=== PATIENT | male | born 1955 | race Caucasian/White ===

== ENCOUNTER 2017-01-03 22:08 | Observation (INO) | payer OTHER ==
[2017-01-03 22:15] VITALS: BMI 22.1
[2017-01-03] MEDS ORDERED: SOLU-Medrol 125 MG VIAL IVP ONE (22:23)
--- NOTE | 2017-01-03 22:28 | DR.GENAD ---
HPI - Complaint/Symptoms Chief Complaint Doctors Comments: Patient complains of not being able to catch his breath for the past 2-3 days getting worst. states he ran out his albuterol about two weeks ago and has been taking OTC medicines. states he does not have a local doctor. He is not on any medicines. states he smokes one pack cigarettes daily. He denies chest pain but has been having SOB and wheezing and decreased energy. He denies swelling of his hands or legs. Chief Complaint:: pt stated that he has become increasingly sob over the last two days Self Treatment fo Chief Complaint: musinex with no relief - Nurses notes reviewed Nurses Notes Review: Yes - Source History Provided: Patient - Mode of Arrival Mode of Arrival: Wheelchair - Timing Onset of Chief Complaint: 01/02/17 Came on: Gradually - Duration Duration: Constant How lon Duration: Days - Location Location: SOB - Severity Severity: Moderate, Severe - Modifying Factors Worsens:: movement Improves:: nothing PMH - PMH Past Medical History: No Past Surgical History: No - Family History History of Family Medical Conditions: No - infectious screening Have you traveled outside the country in the last 6 months?: No ROS - Review of Systems Constitutional: No Symptoms Reported, Weakness. negative: See HPI, Chills, Diaphoresis, Fever, Malaise, Irritable, Fatigue, Loss of Appetite, Other Eyes: No Symptoms Reported. negative: See HPI, Eye Pain, Blurred Vision, Tearing, Discharge, Photophobia, Diplopia, Other ENTM: No Symptoms Reported Respiratoy: No Symptoms Reported, Non-Productive Cough, Short of Breath, Wheezing. negative: See HPI, Productive Cough, Moist Cough, Dry Cough, Hacking Cough, Barking Cough, Brassy Cough, Orthopnea, Stridor, Hemoptysis, Other Cardiovascular: No Symptoms Reported. negative: See HPI, Chest Pain, Edema, Palpitations, Syncope, Cyanosis, Skin Mottling, Other Gastrointestinal/Abdominal: No Symptoms Reported. negative: See HPI, Abdominal Pain, Constipation, Diarrhea, Nausea, Vomiting, Food Intolerance, Other Genitourinary: No Symptoms Reported. negative: See HPI, Discharge, Dysuria, Frequency, Hematuria, Pain, Bleeding, Other Neurological: No Symptoms Reported Musculoskeletal: No Symptoms Reported Integumentary: No Symptoms Reported Hematologic/Lymphatic: No Symptoms Reported. negative: See HPI, Anemia, Blood Clots, Easy Bleeding, Easy Bruising, Swollen Glands, Lymphadenopathy, Other Endocrine: No Symptoms Reported Psychiatric: No Symptoms Reported. negative: See HPI, Anxiety, Depression, Hallucinations, Excessive crying, Suicidal, Other PE - Vital Signs Vitals: Temperature 97.4 F Pulse Rate 95 Respiratory Rate 25 Blood Pressure 144/88 O2 Sat by Pulse Oximetry 85 - General Limitations: No Limitations General Appearance: Alert, In Distress (moderate to severe) - Head Head Exam: Normal Inspection, Atraumatic, Normocephalic - Eyes Eye exam: Normal Appearance, PERRL, EOMI. negative: Scleral Icterus, Conjunctival Injection, Nystagmus, Miosis, Mydrasis, Periorbital Swelling, Periorbital Tenderness, Other - ENT ENT Exam: Normal Exam, Normal Oropharynx, Normal External Ear Exam, Mucous Membranes Moist, TM's Normal Bilaterally External Ear Exam: Normal External Inspection TM/Canal Exam: Bilateral Normal Nose Exam: Normal Nose Exam Mouth Exam: Normal Inspection Throat Exam: Normal Inspection - Neck Neck Exam: Normal Inspection, Full ROM, Trachea Midline. negative: Tenderness, Meningismus, Lymphadenopathy, Thyromegaly, Other - Chest Chest Inspection: Normal Inspection, Symmetric Chest Wall Rise - Respiratory Respiratory Exam: Normal Lung Sounds Bilat, Prolonged Expiratory Phase Respiratory Exam: Bilateral Wheezing, Bilateral Decreased Breath Sounds - Cardiovascular Cardiovascular Exam: Regular Rate, Normal Rhythm, Normal Heart Sounds - Abdominal Exam Abdominal Exam: Normal Inspection, Normal Bowel Sounds, Soft. negative: Distention, Tenderness, Guarding, Rebound, Rigidity, Dimnished Bowel Sounds, Hyperactive Bowel Sounds, Hypoactive Bowel Sounds, Organomegaly, Trauma, Incision, Ascites, Mass, Bruit, Pulsatile Mass, Hernia, Other Abdominal Tenderness: negative: RUQ, RLQ, LUQ, LLQ, Epigastrium, Suprapubic, Diffuse, Mild, Moderate, Severe, Other - Extremities Extremities Exam: Normal Inspection, Full ROM, Normal Capillary Refill. negative: Tenderness, Edema, Joint Swelling, Calf Tenderness, Other - Back Back Exam: Normal Inspection, Full ROM. negative: Tenderness, (R) CVA Tenderness, (L) CVA Tenderness, Muscle Spasm, Paraspinal Tenderness, Vertebral Tenderness, Rashes, (R) Sciatic Notch Tenderness, (L) Sciatic Notch Tendern, (R ) Straight Leg Raise, (L) Straight Leg Raise, Other - Neurologic Neurological Exam: Alert, Oriented X3, CN II-XII Intact, Reflexes Normal. negative: Normal Gait (gait not tested) - Psychiatric Psychiatric Exam: Normal Affect, Normal Mood - Skin Skin Exam: Warm, Dry, Intact, Normal Color Course - Reevaluation 1st: Improved - Consultation Called: 23:37 Call Returned: 23:37 (Dr. Mendoza to admit) - Education/Counseling Education/Counseling: Patient, Family Educated On: Treatment, Diagnosis, Prognosis, Needs for Follow Up ROR - Labs Reviewed Laboratory Results Reviewed?: Yes (all labs and x-ray results reviewed and discussed with patient and spouse) Result Diagrams: 01/03/17 22:30 01/03/17 22:30 Laboratory: WBC 9.2 X10^3/uL (3.6-10.0) 01/03/17 22:30 RBC 4.77 X10^6/uL (4.7-6.0) 01/03/17 22:30 Hgb 14.8 g/dL (13.5-18.0) 01/03/17 22:30 Hct 43.4 % (42.0-54.0) 01/03/17 22:30 MCV 90.9 fL (80.0-100.0) 01/03/17 22:30 MCH 31.0 pg (27.0-34.0) 01/03/17 22:30 MCHC 34.1 g/dL (33.0-35.0) 01/03/17 22:30 RDW 13.6 % (11.6-16.5) 01/03/17 22:30 Plt Count 167 X10^3/uL (150.0-450.0) 01/03/17 22:30 MPV 8.1 fL (7.4-11.0) 01/03/17 22:30 Neut % 44.5 % (42.0-75.0) 01/03/17 22:30 Lymph % 42.3 % (21.0-51.0) 01/03/17 22:30 [place] % 7.6 % (0.0-13.0) 01/03/17 22:30 Eos % 4.0 % (0.9-2.9) H 01/03/17 22:30 Baso % 1.6 % (0.2-1.0) H 01/03/17 22:30 Neut # 4.1 x10^3/uL (2.2-4.8) 01/03/17 22:30 Lymph # 3.9 X10^3/uL (1.3-2.9) H 01/03/17 22:30 [place] # 0.7 x10^3/uL (0.3-0.8) 01/03/17 22:30 Eos # 0.4 x10^3/uL (0.0-0.2) H 01/03/17 22:30 Baso # 0.1 X10^3/uL (0.0-0.1) 01/03/17 22:30 Absolute Nucleated RBC 0.0 /100WBC 01/03/17 22:30 Sodium 141 mmol/L (136-145) 01/03/17 22:30 Corrected Sodium 142 mmol/L (136-145) 01/03/17 22:30 Potassium 4.3 mmol/L (3.5-5.1) 01/03/17 22:30 Chloride 108 mmol/L (98-107) H 01/03/17 22:30 Carbon Dioxide 29.0 mmol/L (21-32) 01/03/17 22:30 BUN 22 mg/dL (7-18) H 01/03/17 22:30 Creatinine 0.90 mg/dL (0.70-1.30) 01/03/17 22:30 Est GFR (MDRD) Af Amer > 60 (>60) 01/03/17 22:30 Est GFR (MDRD) Non-Af > 60 (>60) 01/03/17 22:30 Glucose 131 mg/dL (65-99) H 01/03/17 22:30 Calcium 8.7 mg/dL (8.5-10.1) 01/03/17 22:30 Corrected Calcium TNP 01/03/17 22:30 Total Bilirubin 0.20 mg/dL (0.2-1.0) 01/03/17 22:30 AST 32 Units/L (15-37) 01/03/17 22:30 ALT 35 Units/L (12-78) 01/03/17 22:30 Alkaline Phosphatase 72 Units/L (46-116) 01/03/17 22:30 Total Protein 6.8 g/dL (6.4-8.2) 01/03/17 22:30 Albumin 3.7 g/dL (3.4-5.0) 01/03/17 22:30 Globulin 3.1 g/dL (2.5-4.5) 01/03/17 22:30 Albumin/Globulin Ratio 1.2 Ratio (1.1-2.1) 01/03/17 22:30 - XRAY XRAY Interpreted by: Radiologist (CXR: no acute cardiopulmonary changes noted) - Diagnosis Discharge Problem: COPD exacerbation, Bronchitis, Hypoxemia - Discharge Plan Disposition: ADMITTED INPATIENT Condition: Stable - Follow ups/Referrals Follow ups/Referrals: NFD,None [Primary Care Provider] - 3 days - Instructions
[2017-01-03 22:45] LABS: BASOPHILS # (AUTO) 0.1 X10^3/uL (0.0-0.1); BASOPHILS % (AUTO) 1.6 % (0.2-1.0); EOSINOPHILS # (AUTO) 0.4 x10^3/uL (0.0-0.2); HEMATOCRIT 43.4 % (42.0-54.0); HEMOGLOBIN 14.8 g/dL (13.5-18.0); LYMPHOCYTES # (AUTO) 3.9 X10^3/uL (1.3-2.9); LYMPHOCYTES % (AUTO) 42.3 % (21.0-51.0); MEAN CORPUSCULAR HGB CONC 34.1 g/dL (33.0-35.0); MEAN CORPUSCULAR VOLUME 90.9 fL (80.0-100.0); MEAN PLATELET VOLUME 8.1 fL (7.4-11.0); MONOCYTES # (AUTO) 0.7 x10^3/uL (0.3-0.8); MONOCYTES % (AUTO) 7.6 % (0.0-13.0); NEUTROPHILS # (AUTO) 4.1 x10^3/uL (2.2-4.8); NEUTROPHILS % (AUTO) 44.5 % (42.0-75.0); PLATELET COUNT 167 X10^3/uL (150.0-450.0); RED BLOOD COUNT 4.77 X10^6/uL (4.7-6.0); RED CELL DISTRIBUTION WIDTH 13.6 % (11.6-16.5); WHITE BLOOD COUNT 9.2 X10^3/uL (3.6-10.0)
[2017-01-03 22:55] LABS: ALANINE AMINOTRANSFERASE 35 Units/L (12-78); ALBUMIN 3.7 g/dL (3.4-5.0); ALKALINE PHOSPHATASE 72 Units/L (46-116); ASPARTATE AMINO TRANSFERASE 32 Units/L (15-37); BLOOD UREA NITROGEN 22 mg/dL (7-18); CALCIUM 8.7 mg/dL (8.5-10.1); CHLORIDE 108 mmol/L (98-107); COR NA(FOR HYPERGLY) 142 mmol/L (136-145); SODIUM 141 mmol/L (136-145); TOTAL PROTEIN 6.8 g/dL (6.4-8.2); eGFR BLACK RACES > 60 (>60); eGFR NON BLACK RACES > 60 (>60)
[2017-01-03] MEDS: DUONEB 0.5 MG/3 MG NEB ONE (23:00)
[2017-01-03] MEDS ORDERED: DUONEB 0.5 MG/3 MG NEB ONE (23:35)
--- NOTE | 2017-01-03 23:36 | RAD ---
EXAM: Chest X-ray INDICATION: Shortness of breath COMPARISION: No prior TECHNIQUE: AP, single view FINDINGS: The lungs are clear in the lung volumes are within normal limits. No pleural effusion or pneumothorax . The cardiac silhouette and mediastinum are normal. The regional skeleton is intact. IMPRESSION: Normal Chest X-Ray Reported By:
[2017-01-03] MEDS ORDERED: LEVAQUIN PREMIX IV 500 MG 500 MG/100 ML BAG IV SCH (23:45)
[2017-01-04] MEDS: DUONEB 0.5 MG/3 MG NEB ONE (01:48)
[2017-01-04] MEDS: DUONEB 0.5 MG/3 MG NEB SCH ×5 (01:49→16:05)
[2017-01-04 06:15] LABS: ALANINE AMINOTRANSFERASE 33 Units/L (12-78); ALBUMIN 3.3 g/dL (3.4-5.0); ALKALINE PHOSPHATASE 56 Units/L (46-116); ASPARTATE AMINO TRANSFERASE 28 Units/L (15-37); BASOPHILS % (AUTO) 0.5 % (0.2-1.0); BLOOD UREA NITROGEN 17 mg/dL (7-18); CALCIUM 8.8 mg/dL (8.5-10.1); CARBON DIOXIDE 26.2 mmol/L (21-32); CHLORIDE 106 mmol/L (98-107); COR CA(FOR HYPOALB) 9.4 mg/dL (8.5-10.1); COR NA(FOR HYPERGLY) 142 mmol/L (136-145); CREATININE 0.77 mg/dL (0.70-1.30); EOSINOPHILS % (AUTO) 0.1 % (0.9-2.9); HEMATOCRIT 40.6 % (42.0-54.0); HEMOGLOBIN 13.8 g/dL (13.5-18.0); LYMPHOCYTES # (AUTO) 0.7 X10^3/uL (1.3-2.9); LYMPHOCYTES % (AUTO) 10.8 % (21.0-51.0); MEAN CORPUSCULAR HEMOGLOBIN 30.8 pg (27.0-34.0); MEAN CORPUSCULAR HGB CONC 34.1 g/dL (33.0-35.0); MEAN CORPUSCULAR VOLUME 90.4 fL (80.0-100.0); MEAN PLATELET VOLUME 8.2 fL (7.4-11.0); MONOCYTES # (AUTO) 0.1 x10^3/uL (0.3-0.8); MONOCYTES % (AUTO) 1.4 % (0.0-13.0); NEUTROPHILS # (AUTO) 5.3 x10^3/uL (2.2-4.8); NEUTROPHILS % (AUTO) 87.2 % (42.0-75.0); PLATELET COUNT 163 X10^3/uL (150.0-450.0); RED BLOOD COUNT 4.49 X10^6/uL (4.7-6.0); RED CELL DISTRIBUTION WIDTH 13.7 % (11.6-16.5); SODIUM 140 mmol/L (136-145); TOTAL PROTEIN 6.4 g/dL (6.4-8.2); WHITE BLOOD COUNT 6.1 X10^3/uL (3.6-10.0); eGFR BLACK RACES > 60 (>60); eGFR NON BLACK RACES > 60 (>60)
[2017-01-04] MEDS: SOLU-Medrol 40 MG VIAL IVP SCH ×2 (09:39→13:46)
[2017-01-04 16:31] VITALS: BP 130/61
[2017-01-04] MEDS ORDERED: LEVAQUIN PREMIX IV 500 MG 500 MG/100 ML BAG IV SCH (21:00)
[2017-01-05] MEDS ORDERED: SOLU-Medrol 40 MG VIAL IVP SCH (09:00)
--- NOTE | 2017-01-25 22:27 | DR.CARTERS ---
Short Stay Summary - Short Stay Summary for: Short Stay Summary for Date of:: 01/03/17 - Admission Date Date of Admission: 01/03/17 - Discharge Date Discharge Date: 01/04/17 - Admission Diagnoses (1) Bronchitis Status: Acute (2) COPD exacerbation Status: Acute (3) Hypoxemia Status: Acute - Hospital Course Hospital Course: Patient presented to ED with complains of not being able to catch his breath for the past 2-3 days getting worst. states he ran out his albuterol about two weeks ago and has been taking OTC medicines. states he does not have a local doctor. He is not on any medicines. states he smokes one pack cigarettes daily. He denies chest pain but has been having SOB and wheezing and decreased energy. He denies swelling of his hands or legs. Patient admitted for further treatment. Patient had clear CXR. Was given neb treatments, antibiotics and steroids. Had improvement and was discharged home. - Discharge Medications Discharge Medications: Albuterol Neb 2.5MG/ 3Ml [Proventil Neb Tx 0.083% 2.5MG/ 3Ml] 1 nebule INH Q6H # 120 nebule 01/04/17 [Rx] Albuterol Sulfate [Proair Hfa] 8.5 gm IH NEEDED PRN #120 [email or web address] 01/04/17 [Rx] - Discharge Plan Disposition: 01 HOME, SELF-CARE Condition: Stable Prescriptions: Albuterol Neb 2.5MG/ 3Ml [Proventil Neb Tx 0.083% 2.5MG/ 3Ml] 1 nebule INH Q6H # 120 nebule Albuterol Sulfate [Proair Hfa] 8.5 gm IH NEEDED PRN #120 [email or web address] PRN Reason: Air Hunger - Follow up/Referrals Follow up/Referrals: NFD,None [Primary Care Provider] - 3 days - Instructions Instructions: Chronic Obstructive Pulmonary Disease Exacerbation, [id number]
== END 2017-01-04 14:25 | disposition home or self-care (01) ==
LOC: ER 22:08 → MED/SURG 23:58
PROVIDERS: ADMIT Internal Medicine; ATTEND Internal Medicine
DX: J20.8 Acute bronchitis due to other specified organisms (principal); J44.1 Chronic obstructive pulmonary disease with (acute) exacerbation; R09.02 Hypoxemia; R06.02 Shortness of breath; R73.09 Other abnormal glucose; Z72.0 Tobacco use
CPT/HCPCS: 36415; 71010; 80053; 85025; 90471; 94640; 94760; 96365; 96367; 96372; 96374; 96375; 99218; 99284; A4216; A4222; G0378; J1956; J2920; J2930; J7620